=== PATIENT | female | born 1985 | race Caucasian/White ===

== ENCOUNTER 2020-05-18 15:57 | Outpatient (CLI) | payer OTHER | END 2020-05-18 20:02 | disposition home or self-care (01) | LOC: SLB 15:57 | PROVIDERS: ATTEND Specialist | DX: Z20.828 Contact with and (suspected) exposure to other viral communicable diseases (principal) | CPT/HCPCS: C9803; U0003 ==

== ENCOUNTER 2020-06-03 12:05 | Inpatient (IN) | payer OTHER ==
[~2020-06-03] VITALS: Ht 160 cm; Wt 70.5 kg
[2020-06-03] MEDS ORDERED: DINOPROSTONE 10 MG SUPP VG ONE (14:45)
[2020-06-03] MEDS ORDERED: TERBUTALINE SULFATE 1 MG/ML VIAL SUBCUT ONE (14:45)
[2020-06-03 15:34] LABS: BASOPHILS # (AUTO) 0.1 K/uL (0.0-0.2); EOSINOPHILS # (AUTO) 0.1 K/uL (0.0-0.4); EOSINOPHILS % (AUTO) 0.6 % (0.0-4.0); HEMATOCRIT 38.7 % (36-48); HEMOGLOBIN 13.2 g/dL (12.0-16.0); LYMPHOCYTES # (AUTO) 1.1 K/uL (1.0-5.5); LYMPHOCYTES % (AUTO) 10.8 % (20.5-51.5); MEAN CORPUSCULAR HEMOGLOBIN 30 pg (27-31); MEAN CORPUSCULAR HGB CONC 34 % (32-36); MEAN CORPUSCULAR VOLUME 87 fL (79.0-98.0); MONOCYTES # (AUTO) 0.5 K/uL (0.0-1.0); MONOCYTES % (AUTO) 5.1 % (1.7-9.3); NEUTROPHILS # (AUTO) 8.6 K/uL (1.8-7.7); NEUTROPHILS % (AUTO) 82.5 % (40.0-70.0); PLATELET COUNT (AUTO) 241 K/uL (130-430); RED BLOOD CELL COUNT(AUTO) 4.42 MIL/uL (4.2-6.2); RED CELL DISTRIBUTION WIDTH 13.3 % (9.0-15.0); WHITE BLOOD COUNT (AUTO) 10.4 K/uL (4.8-10.8)
[2020-06-03 16:59] VITALS: BP_SYST 122
[2020-06-04] MEDS ORDERED: MORPHINE SULFATE 10 MG/ML VIAL ONE (03:59)
[2020-06-04] MEDS: MORPHINE SULFATE 10 MG/ML VIAL IVP PRN ×2 (06:50→09:14)
[2020-06-04] MEDS ORDERED: NALOXONE HCL 0.4 MG/ML AMP (NARCAN) IVP PRN ×3 (07:00→13:15)
[2020-06-04] MEDS ORDERED: DINOPROSTONE 10 MG SUPP VG ONE (08:53)
[2020-06-04] MEDS ORDERED: LR 500 ML IV ONE ×2 (09:00→10:07)
[2020-06-04] MEDS ORDERED: LR 1,000 ML IV SCH ×2 (09:00→17:43)
[2020-06-04] MEDS: OXYTOCIN/0.9 % SODIUM CHLORIDE 1,000 ML IV SCH ×2 (09:04→14:00)
[2020-06-04] MEDS ORDERED: ROPIVACAINE HCL/PF 0.2% 200 ML ONE (09:36)
[2020-06-04] MEDS ORDERED: fentaNYL CITRATE/PF 100 MCG/2 ML AMP ONE (09:36)
[2020-06-04] MEDS ORDERED: FENT2mCg/mL-ROPIVA0.2%/NS EPID 200 ML EP SCH (10:15)
[2020-06-04] MEDS ORDERED: LR 1,000 ML IV ONE (12:48)
[2020-06-04] MEDS ORDERED: CEFAZOLIN 2 GM IVPB PREMIX 50 ML IV ONE ×2 (13:00→13:08)
[2020-06-04] MEDS ORDERED: ONDANSETRON HCL 4 MG/2 ML VIAL IVP PRN ×2 (13:15)
[2020-06-04] MEDS ORDERED: OXYTOCIN 10 UNIT/ML VIAL ONE (13:15)
[2020-06-04] MEDS ORDERED: DIPHENHYDRAMINE INJ 50 MG/ML VIAL IVP PRN (13:15)
[2020-06-04] MEDS ORDERED: KETOROLAC TROMETHAMINE 60 MG/2 ML VIAL IM PRN (13:15)
[2020-06-04] MEDS ORDERED: fentaNYL CITRATE/PF 100 MCG/2 ML AMP IVP PRN ×2 (13:15)
[2020-06-04] MEDS ORDERED: MORPHINE SULFATE 10MG/10ML PF AMP EP SCH (13:15)
[2020-06-04] MEDS ORDERED: NALBUPHINE HCL 10 MG/ML AMP IVP PRN (13:15)
[2020-06-04 13:26] VITALS: BP_SYST 115
[2020-06-04] MEDS ORDERED: OXYTOCIN/0.9 % SODIUM CHLORIDE 1,000 ML IV ONE ×2 (14:12→17:43)
[2020-06-04] MEDS ORDERED: BISACODYL 10 MG/SUPPOSITORY RC PRN (17:45)
[2020-06-04] MEDS ORDERED: DIPH-TET-PERTUS Vaccine 0.5 ML VIAL (ADACEL) I.M. PRN (17:45)
[2020-06-04] MEDS ORDERED: OXYTOCIN 10 UNIT/ML VIAL IM ONE (17:45)
[2020-06-04] MEDS ORDERED: ANUSOL 1 EA SUPP.RECT (PREPARATION H) RC PRN (17:45)
[2020-06-04] MEDS ORDERED: SENNOSIDES/DOCUSATE SODIUM 1 TAB TABLET(SENOKOT-S) PO PRN (17:45)
[2020-06-04] MEDS ORDERED: LANOLIN 7 GM OINT. TP PRN (17:45)
[2020-06-04] MEDS: KETOROLAC TROMETHAMINE 30 MG VIAL IVP SCH ×2 (18:13→22:55)
[2020-06-04] MEDS: CEFAZOLIN 1 GM IVPB PREMIX 50 ML IV SCH ×2 (18:13→22:56)
[2020-06-04] MEDS ORDERED: TEMAZEPAM 15 MG CAPSULE PO PRN (21:00)
[2020-06-05] MEDS: KETOROLAC TROMETHAMINE 30 MG VIAL IVP SCH ×2 (04:20→12:32)
[2020-06-05] MEDS: CEFAZOLIN 1 GM IVPB PREMIX 50 ML IV SCH (04:21)
[2020-06-05] MEDS: SIMETHICONE 80 MG TAB.CHEW PO PRN ×3 (04:21→23:43)
[2020-06-05] MEDS: DOCUSATE SODIUM 100 MG CAPSULE PO PRN ×3 (04:21→23:43)
[2020-06-05 07:04] LABS: BASOPHILS % (AUTO) 0.3 % (0.0-2.0); EOSINOPHILS % (AUTO) 0.2 % (0.0-4.0); HEMATOCRIT 32.6 % (36-48); HEMOGLOBIN 11.1 g/dL (12.0-16.0); LYMPHOCYTES # (AUTO) 1.1 K/uL (1.0-5.5); LYMPHOCYTES % (AUTO) 8.2 % (20.5-51.5); MEAN CORPUSCULAR HEMOGLOBIN 30 pg (27-31); MEAN CORPUSCULAR HGB CONC 34 % (32-36); MEAN CORPUSCULAR VOLUME 88 fL (79.0-98.0); MONOCYTES # (AUTO) 0.7 K/uL (0.0-1.0); MONOCYTES % (AUTO) 5.4 % (1.7-9.3); NEUTROPHILS # (AUTO) 11.7 K/uL (1.8-7.7); NEUTROPHILS % (AUTO) 85.9 % (40.0-70.0); PLATELET COUNT (AUTO) 182 K/uL (130-430); RED BLOOD CELL COUNT(AUTO) 3.72 MIL/uL (4.2-6.2); RED CELL DISTRIBUTION WIDTH 13.7 % (9.0-15.0); WHITE BLOOD COUNT (AUTO) 13.6 K/uL (4.8-10.8)
[2020-06-05] MEDS ORDERED: OXYCODONE/ACETAMINOPHEN 5-325 TABLET PO PRN (12:00)
[2020-06-05] MEDS: IBUPROFEN 600 MG TABLET PO SCH ×2 (18:02→23:42)
[2020-06-06] MEDS: IBUPROFEN 600 MG TABLET PO SCH ×3 (05:50→18:10)
[2020-06-06] MEDS: DOCUSATE SODIUM 100 MG CAPSULE PO PRN ×2 (05:51→18:09)
[2020-06-06] MEDS: SIMETHICONE 80 MG TAB.CHEW PO PRN ×2 (05:52→18:09)
[2020-06-06] MEDS: OXYCODONE/ACETAMINOPHEN 5-325 TABLET PO PRN (19:19)
[2020-06-07] MEDS: IBUPROFEN 600 MG TABLET PO SCH (06:10)
[2020-06-07] MEDS: SIMETHICONE 80 MG TAB.CHEW PO PRN (06:24)
[2020-06-07] MEDS: OXYCODONE/ACETAMINOPHEN 5-325 TABLET PO PRN (09:30)
== END 2020-06-07 11:45 | disposition home or self-care (01) | DRG 788 ==
LOC: SPU 12:05 → OBSVTOIN 12:05 → SPU 12:20
PROVIDERS: ADMIT Specialist; ATTEND Specialist
PROC: 3E0P7VZ Introduction of Hormone into Female Reproductive, Via Natural or Artificial Opening (ICD-10-PCS; 2020-06-03)
PROC: 10D00Z1 Extraction of Products of Conception, Low, Open Approach (ICD-10-PCS; principal; 2020-06-05)
DX: O77.0 Labor and delivery complicated by meconium in amniotic fluid (principal); O32.2XX0 Maternal care for transverse and oblique lie, not applicable or unspecified; O32.1XX0 Maternal care for breech presentation, not applicable or unspecified; Z3A.40 40 weeks gestation of pregnancy; Z37.0 Single live birth
CPT/HCPCS: 36415; 85025; 86592; 86886; 86900; 86901; J0690; J1885; J2270; J2590; J3010; J7120